=== PATIENT | female | born 1975 | race Caucasian/White ===

== ENCOUNTER 2021-07-06 17:45 | Emergency (ER) | payer SELFPAY ==
[~2021-07-06] VITALS: Ht 162.6 cm; Wt 52.6 kg
[2021-07-06 17:54] VITALS: BP 146/80
== END 2021-07-06 20:22 | disposition left against medical advice (07) ==
LOC: MED 17:45
DX: F10.129 Alcohol abuse with intoxication, unspecified (principal); Z53.21 Procedure and treatment not carried out due to patient leaving prior to being seen by health care provider; Y90.9 Presence of alcohol in blood, level not specified
CPT/HCPCS: 81025